=== PATIENT | female | born 1960 | race Caucasian/White ===

== ENCOUNTER 2024-02-15 15:05 | Emergency (ER) | payer OTHER ==
[~2024-02-15] VITALS: Ht 152.4 cm; Wt 68.6 kg
[2024-02-15 15:48] VITALS: BP 126/69; PULSE 72; RESP 16; TEMP 97.9; O2SAT 97
[2024-02-15] MEDS ORDERED: KETOROLAC 30 MG/ML VIAL IM ONE (18:25)
[2024-02-15] MEDS: KETOROLAC 30 MG/ML VIAL IM ONE (20:00)
[2024-02-15 20:34] VITALS: BP 126/69; PULSE 72; RESP 16; TEMP 97.9; O2SAT 97
== END 2024-02-15 20:34 | disposition home or self-care (01) ==
LOC: MED 15:05
DX: M19.011 Primary osteoarthritis, right shoulder (principal); M17.12 Unilateral primary osteoarthritis, left knee; W18.39XA Other fall on same level, initial encounter; Y93.01 Activity, walking, marching and hiking; Y92.89 Other specified places as the place of occurrence of the external cause; Y99.8 Other external cause status
CPT/HCPCS: 73030; 73562; 96372; 99284; J1885